=== PATIENT | male | born 1970 | race Caucasian/White ===

== ENCOUNTER 2017-10-02 08:07 | Day surgery (SDC) | payer OTHER ==
[~2017-10-02 08:07] MED LIST: OMEPRAZOLE20 M1 PO; SIMVASTATIN10 MG PO; ZANTAC150 M3 PO
== END 2017-10-02 13:45 | disposition home or self-care (01) ==
LOC: CIR.AMB 08:07
DX: M77.12 Lateral epicondylitis, left elbow (principal); S56.512A Strain of other extensor muscle, fascia and tendon at forearm level, left arm, initial encounter

== ENCOUNTER 2019-09-27 06:40 | Outpatient (CLI) | payer OTHER ==
[2019-10-01] MEDS ORDERED: ZYRTEC10 M3 PO (08:39)
== END 2019-09-27 06:48 | disposition home or self-care (01) ==
LOC: LAB 06:40
PROVIDERS: ATTEND Orthopaedic Surgery
DX: I10 Essential (primary) hypertension (principal); Z01.810 Encounter for preprocedural cardiovascular examination; Z01.812 Encounter for preprocedural laboratory examination; Z01.811 Encounter for preprocedural respiratory examination

== ENCOUNTER 2019-10-07 06:00 | Day surgery (SDC) | payer OTHER ==
[~2019-10-07 06:00] MED LIST changes: +ZYRTEC10 M3 PO
== END 2019-10-07 12:55 | disposition home or self-care (01) ==
LOC: CIR.AMB 06:00
PROVIDERS: ATTEND Orthopaedic Surgery
DX: M75.111 Incomplete rotator cuff tear or rupture of right shoulder, not specified as traumatic (principal); M19.011 Primary osteoarthritis, right shoulder; Z20.828 Contact with and (suspected) exposure to other viral communicable diseases